=== PATIENT | female | born 1990 | race Caucasian/White ===

== ENCOUNTER → 2018-06-26 09:10 | Outpatient (REF) | payer MEDICAID, SELFPAY ==
[2018-06-26 12:46] LABS: Iron 113 ug/dL (50-175); Total Iron Binding Capacity 336 ug/dL (250-450); Transferrin Sat 34 % (15-50)
[2018-06-26 12:49] LABS: Abs Immature Grans 0.01 k/cumm (0.0-0.09); Absolute Basophil Count 0.03 k/cumm (0.0-0.2); Absolute Lymphocyte Count 2.68 k/cumm (1.2-3.4); Absolute Monocyte Count 0.57 k/cumm (0.11-0.7); Absolute Neutrophil Count 3.75 k/cumm (1.2-6.7); Basophils % 0.4; Eosinophils % 1.4; HCT 42.6 % (36.0-46.0); HGB 14.5 g/dL (12.0-15.5); Immature Grans % 0.1; Lymphocytes % 37.5; Mean Corpuscular Hemoglobin 29.4 pg (27.0-33.0); Mean Corpuscular Volume 86.4 fL (80-95); Mean Platelet Volume 10.6 fL (8.0-11.0); Neutrophils % 52.6; Platelet Count 327 x1000/uL (130-400); RBC 4.93 m/cumm (4.00-5.20); RBC Distribution Width 12.2 % (11.7-14.6); White Blood Cell Count 7.14 k/cumm (4.4-10.8)
[2018-06-26 13:05] LABS: Anion Gap 7.6 mmol/L (3-11); BUN 18 mg/dL (7-18); CO2 24.4 mmol/L (21.0-32.0); CREATININE 0.85 mg/dL (0.55-1.02); Calcium 8.9 mg/dL (8.5-10.1); Chloride 107 mmol/L (98-107); Ferritin 70 ng/mL (8-388); Glucose 88 mg/dL (70-100); Potassium 4.2 mmol/L (3.5-5.1); Sodium 139 mmol/L (136-145); TSH (W/Ref FT4) 1.79 uIU/mL (0.358-3.74); Vitamin B12 631 pg/mL (193-986)
== END ==
LOC: NCHCN 09:10
PROVIDERS: PCP Nurse Practitioner Family; Visit Provider Nurse Practitioner Family
DX: R53.83 Other fatigue (principal); R51 Headache; M25.50 Pain in unspecified joint; F41.9 Anxiety disorder, unspecified; Z30.9 Encounter for contraceptive management, unspecified; A60.00 Herpesviral infection of urogenital system, unspecified
CPT/HCPCS: 80048; 82607; 82728; 83540; 83550; 84443; 85025

== ENCOUNTER 2018-10-25 09:57 | Outpatient (REF) | payer MEDICAID, SELFPAY ==
--- NOTE | 2018-10-25 09:50 | PAPFT_PTH ---
PATIENT: Daily Osei LOC: NCN #:[id number] AGE/SX: 28/F ROOM: RE10/25/[address]: Pilar Stephens : 1990 BED: DIS: 10/25/2018 SPEC #: [id number] RECD: 10/25/18 13:01 STATUS: FABRIZIO RERoberto #: [id number] KEYON: 10/25/18 09:[address]: Pilar Stephens [facility] Cytology RECD BY: Qiana Davis Tissues: 1 - CX/ENDOCX FOR PAP SMEARS Procedures: PAP THIN PREP/UVM Screening Comments: [id number] (CHLAMYDIA/GC)
[2018-10-26 09:51] LABS: HIV-1/2 Ag & Ab Screen Negative (NEGAT)
[2018-10-26 11:28] LABS: Syphilis Serology (RPR) Negative (Negative)
[2018-10-26 13:30] LABS: Chlamydia Result Negative; GC Result Negative; Specimen Description SEE COMMENTS
== END 2018-10-25 10:17 ==
LOC: NCHCN 09:57
PROVIDERS: PCP Nurse Practitioner Family; Visit Provider Nurse Practitioner Family
DX: Z11.4 Encounter for screening for human immunodeficiency virus [HIV] (principal); Z11.59 Encounter for screening for other viral diseases; Z11.3 Encounter for screening for infections with a predominantly sexual mode of transmission; R53.83 Other fatigue; F41.9 Anxiety disorder, unspecified; Z12.4 Encounter for screening for malignant neoplasm of cervix
CPT/HCPCS: 87389; 87491; 87591; 88142; 86592

== ENCOUNTER 2019-02-14 13:21 | Outpatient (REF) | payer MEDICAID, SELFPAY | END 2019-02-14 13:41 | LOC: NCHCN 13:21 | PROVIDERS: PCP Nurse Practitioner Family; Visit Provider Nurse Practitioner Family | DX: N39.0 Urinary tract infection, site not specified (principal) | CPT/HCPCS: 87077; 87086; 87186 ==

== ENCOUNTER 2019-05-21 12:01 | Outpatient (REF) | payer MEDICAID, SELFPAY ==
[2019-05-21 21:41] LABS: Abs Immature Grans 0.01 k/cumm (0.0-0.09); Absolute Basophil Count 0.02 k/cumm (0.0-0.2); Absolute Eosinophil Count 0.12 k/cumm (0.0-0.7); Absolute Lymphocyte Count 2.31 k/cumm (1.2-3.4); Absolute Monocyte Count 0.65 k/cumm (0.11-0.7); Absolute Neutrophil Count 2.87 k/cumm (1.2-6.7); Basophils % 0.3; HCT 41.3 % (36.0-46.0); Immature Grans % 0.2; Lymphocytes % 38.6; Mean Corp. HGB Concentration 33.9 g/dL (32.0-36.0); Mean Corpuscular Hemoglobin 29.8 pg (27.0-33.0); Mean Corpuscular Volume 87.9 fL (80-95); Mean Platelet Volume 11.4 fL (8.0-11.0); Monocytes % 10.9; Platelet Count 284 x1000/uL (130-400); RBC Distribution Width 12.3 % (11.7-14.6); White Blood Cell Count 5.98 k/cumm (4.4-10.8)
[2019-05-21 21:56] LABS: ALT 33 U/L (12-78); AST 14 U/L (15-37); Albumin 3.7 g/dL (3.4-5.0); Alkaline Phosphatase 74 U/L (46-116); Anion Gap 10.1 mmol/L (3-11); BUN 10 mg/dL (7-18); Bilirubin, Total 0.2 mg/dL (0.2-1.0); CO2 25.9 mmol/L (21.0-32.0); CREATININE 0.74 mg/dL (0.55-1.02); Calcium 8.9 mg/dL (8.5-10.1); Chloride 106 mmol/L (98-107); Glucose 74 mg/dL (70-100); Potassium 4.5 mmol/L (3.5-5.1); Sodium 142 mmol/L (136-145); Total Protein 6.8 g/dL (6.4-8.2)
== END 2019-05-21 12:21 ==
LOC: NCHCN 12:01
PROVIDERS: PCP Nurse Practitioner Family; Visit Provider Nurse Practitioner Family
DX: R30.0 Dysuria (principal)
CPT/HCPCS: 80053; 85025; 87086

== ENCOUNTER 2019-05-23 08:12 | Outpatient (CLI) | payer MEDICAID, SELFPAY ==
--- NOTE | 2019-05-23 08:35 | DI.CT_ITS ---
SYMPTOM/DIAGNOSIS: DYSURIA R30.[address]: There are no prior comparison exams. Images were performed from the lung bases through the ischial tuberosities without IV or oral contrast. The heart size is normal. There are bilateral breast implants. The lung bases are clear. There are no renal calculi or evidence of hydronephrosis. The urinary bladder is mildly distended and unremarkable. The uterus and ovaries also have a normal appearance. The liver, gallbladder, spleen, pancreas and adrenals are unremarkable without IV contrast. There is a moderate quantity of stool. No bowel dilatation or wall thickening is seen IMPRESSION: Negative renal colic CT. No evidence of urinary tract calculi or other acute abnormality.
== END 2019-05-23 08:32 ==
PROVIDERS: PCP Nurse Practitioner Family; Visit Provider Nurse Practitioner Family
DX: R30.0 Dysuria (principal)
CPT/HCPCS: 74176

== ENCOUNTER 2020-01-28 04:37 | Outpatient (CLI) | payer MEDICAID, SELFPAY ==
[2020-01-28 08:28] LABS: Abs Immature Grans 0.01 k/cumm (0.0-0.09); Absolute Basophil Count 0.04 k/cumm (0.0-0.2); Absolute Eosinophil Count 0.09 k/cumm (0.0-0.7); Absolute Monocyte Count 0.62 k/cumm (0.11-0.7); Absolute Neutrophil Count 4.53 k/cumm (1.2-6.7); Basophils % 0.5; Eosinophils % 1.2; HCT 42.1 % (36.0-46.0); HGB 14.3 g/dL (12.0-15.5); Immature Grans % 0.1 %; Lymphocytes % 28.4; Mean Corpuscular Hemoglobin 29.5 pg (27.0-33.0); Mean Platelet Volume 10.1 fL (8.0-11.0); Monocytes % 8.4; Neutrophils % 61.4; Platelet Count 351 x1000/uL (130-400); RBC 4.84 m/cumm (4.00-5.20); RBC Distribution Width 12.2 % (11.7-14.6); White Blood Cell Count 7.39 k/cumm (4.4-10.8)
[2020-01-28 09:08] LABS: ALT 28 U/L (14-59); AST 18 U/L (15-37); Alkaline Phosphatase 77 U/L (46-116); Anion Gap 8.3 mmol/L (3-11); BUN 6 mg/dL (7-18); Bilirubin, Total 0.3 mg/dL (0.2-1.0); CO2 28.7 mmol/L (21.0-32.0); CREATININE 0.84 mg/dL (0.55-1.02); Chloride 106 mmol/L (98-107); Glucose 91 mg/dL (74-106); Potassium 3.7 mmol/L (3.5-5.1); Sodium 143 mmol/L (136-145); Total Protein 6.9 g/dL (6.4-8.2)
== END 2020-01-28 04:57 ==
PROVIDERS: PCP Nurse Practitioner Family; Visit Provider Nurse Practitioner Family
DX: R19.7 Diarrhea, unspecified (principal)
CPT/HCPCS: 36415; 80053; 85025

== ENCOUNTER 2020-01-28 17:46 | Outpatient (REF) | payer MEDICAID, SELFPAY ==
[2020-01-30 10:18] LABS: Campylobacter PCR Negative (Negative); Salmonella PCR Negative (Negative); Shiga Toxin PCR Negative (Negative); Shigella/Enteroinvasive Ecoli Negative (Negative)
== END 2020-01-28 18:06 ==
LOC: LBN 17:46
PROVIDERS: PCP Nurse Practitioner Family; Visit Provider Nurse Practitioner Family
DX: R19.7 Diarrhea, unspecified (principal)
CPT/HCPCS: 87505; 87177

== ENCOUNTER 2020-02-17 12:50 | Outpatient (REF) | payer MEDICAID, SELFPAY | END 2020-02-17 13:10 | LOC: NCHCN 12:50 | PROVIDERS: PCP Nurse Practitioner Family; Visit Provider Nurse Practitioner Family | DX: N39.0 Urinary tract infection, site not specified (principal); R39.15 Urgency of urination | CPT/HCPCS: 87077; 87086; 87186 ==

== ENCOUNTER 2020-04-30 21:07 | Outpatient (REF) | payer MEDICAID, SELFPAY | END 2020-04-30 21:27 | LOC: NCHCN 21:07 | PROVIDERS: PCP Nurse Practitioner Family; Visit Provider Nurse Practitioner Family | DX: R30.0 Dysuria (principal) | CPT/HCPCS: 87077; 87086; 87186 ==

== ENCOUNTER 2020-05-14 11:31 | Outpatient (REF) | payer MEDICAID, SELFPAY | END 2020-05-14 11:51 | LOC: NCHCN 11:31 | PROVIDERS: PCP Nurse Practitioner Family; Visit Provider Nurse Practitioner Family | DX: R30.0 Dysuria (principal) | CPT/HCPCS: 87077; 87086; 87186 ==

== ENCOUNTER 2020-05-29 12:14 | Outpatient (REF) | payer MEDICAID, SELFPAY | END 2020-05-29 12:34 | LOC: NCHCN 12:14 | PROVIDERS: PCP Nurse Practitioner Family; Visit Provider Internal Medicine | DX: N39.0 Urinary tract infection, site not specified (principal); R30.0 Dysuria | CPT/HCPCS: 87077; 87086; 87186 ==

== ENCOUNTER 2020-06-03 14:41 | Outpatient (REF) | payer MEDICAID, SELFPAY | END 2020-06-03 15:01 | LOC: NCHCN 14:41 | PROVIDERS: PCP Nurse Practitioner Family; Visit Provider Family Medicine | DX: N39.0 Urinary tract infection, site not specified (principal); R30.0 Dysuria | CPT/HCPCS: 87086 ==

== ENCOUNTER 2020-06-24 13:10 | Outpatient (REF) | payer MEDICAID, SELFPAY ==
[2020-06-27 19:41] LABS: SARS-CoV-2 RNA Undetected (Undetected); SARS-CoV-2 Specimen Source Nasopharynx
== END 2020-06-24 13:30 ==
LOC: NCHCN 13:10
PROVIDERS: PCP Nurse Practitioner Family; Visit Provider Nurse Practitioner Family
DX: Z20.828 Contact with and (suspected) exposure to other viral communicable diseases (principal)
CPT/HCPCS: U0003

== ENCOUNTER 2020-07-02 15:58 | Outpatient (REF) | payer MEDICAID, SELFPAY | END 2020-07-02 16:18 | LOC: LBN 15:58 | PROVIDERS: PCP Nurse Practitioner Family; Visit Provider Nurse Practitioner Gerontology | DX: N39.0 Urinary tract infection, site not specified (principal) | CPT/HCPCS: 87077; 87086; 87186 ==

== ENCOUNTER 2020-07-29 13:48 | Outpatient (REF) | payer MEDICAID, SELFPAY ==
[2020-08-01 02:00] LABS: Patient Race White; SARS-CoV-2 RNA Undetected (Undetected); SARS-CoV-2 Specimen Source Nasal
== END 2020-07-29 14:08 ==
LOC: NCHCN 13:48
PROVIDERS: PCP Nurse Practitioner Family; Visit Provider Nurse Practitioner Family
DX: Z20.828 Contact with and (suspected) exposure to other viral communicable diseases (principal)
CPT/HCPCS: U0003

== ENCOUNTER 2020-08-11 13:09 | Outpatient (REF) | payer MEDICAID, SELFPAY ==
[2020-08-14 18:48] LABS: Patient Race White; SARS-CoV-2 RNA Undetected (Undetected); SARS-CoV-2 Specimen Source Nasal
== END 2020-08-11 13:29 ==
LOC: NCHCN 13:09
PROVIDERS: PCP Nurse Practitioner Family; Visit Provider Nurse Practitioner Family
DX: Z20.828 Contact with and (suspected) exposure to other viral communicable diseases (principal)
CPT/HCPCS: U0003

== ENCOUNTER 2020-08-18 09:51 | Emergency (ER) | payer MEDICAID, SELFPAY ==
[2020-08-18 09:58] VITALS: BP 118/79; PULSE 98; RESP 18; TEMP 36.8; O2SAT 96
--- NOTE | 2020-08-18 10:08 | W.ED.GENAD ---
Discharge Plan Disposition Patient Disposition: HOME Condition: Stable Discharge Details Clinical Impression: UTI (urinary tract infection) Primary Care Provider: Pilar Stephens ED Provider: Aram Hansen Home Meds and New Rx's Prescriptions: New nitrofurantoin monohyd/m-cryst [Macrobid] 100 mg capsule 100 mg PO BID Qty: 14 RF: 0 Continued oxybutynin chloride 5 mg tablet extended release 24hr 5 mg PO DAILY Qty: 90 RF: 3 valacyclovir 500 MG tablet 500 mg PO BID PRN RF: 0 multivitamin [Daily Multi-Vitamin] 1 EACH tablet 1 ea PO DAILY RF: 0 venlafaxine [Effexor XR] 75 mg capsule,extended release 24hr 150 mg PO DAILY RF: 0 Discharge Instructions Instructions: Urinary Tract Infection in Women (ED) Additional Instructions: Macrobid as directed. Plenty of fluids to avoid dehydration. [id number] Tylenol, Motrin, Azo as directed for symptomatic control. Please watch for new or worsening symptoms and return to the ER for any concerns. I will be sure to CC this note to DEMI Leblanc, please contact her office later today or tomorrow for prompt outpatient reevaluation. Referrals: Christiane Leblanc, TAJ [NURSE PRACTITIONER] - Medical Decision Making 29-year-old female with recurrent UTIs presents with 5-day symptoms of lower abdominal and back pain, dysuria, frequency and now today a low-grade fever at home 100.4. She called her urology team and sent here for further evaluation. Clinically she appears well, nontoxic. She is afebrile, pulse in the 90s, blood pressure 118/79. She does have discomfort across her back and lower abdomen but certainly there is no rebound, guarding or rigidity. Clinically certainly appears to be a urinary tract infection however would like to obtain urinalysis and test to rule out , ectopic . Lower suspicion for renal stone, pyelonephritis, etc. Urinalysis reveals moderate blood, large leuk esterase, 10-20 red cells, greater than 50 white cells. Culture pending. I consulted DEMI Leblanc, we discussed previous culture and 70s. We will give a single dose of Macrobid now and will obtain CBC, CMP, renal ultrasound for further evaluation. Patient given 1 L IV fluid, 30 IV Toradol. White blood cell count 11.54, chemistries unremarkable. Ultrasound negative. Work-up most consistent with UTI, no clear indication that this is pyelonephritis that would require admission. Minimal nonspecific leukocytosis. She is afebrile, without any vomiting. Discussed options with patient. She is comfortable discharge home, I will provide a prescription for Macrobid, she will take [id number] Tylenol and/or Motrin, Azo, and follow-up with urology later today or tomorrow. Medical Records Medical records reviewed: Yes I reviewed the patient's medical records. Imaging Data Radiologic Study: Attestation: I personally reviewed and interpreted this imaging study as follows: Imaging: Ultrasound Radiologist's impression: Renal ultrasound unremarkable Lab Data Lab results reviewed: Yes I reviewed the patient's lab results. Lab results narrative: 08/18/20 09:55 Urine - Reflex from Ua Urine Culture - Pending Laboratory Tests Range/Units 08/18/20 08/18/20 08/18/20 09:55 10:50 10:50 WBC (4.4-10.8) 10^3/uL 11.54 H RBC (3.93-5.22) 10^6/uL 4.82 Hgb (11.2-15.7) g/dL 14.3 Hct (36.0-46.0) % 42.1 MCV (80-95) fL 87.3 MCH (27.0-33.0) pg 29.7 MCHC (32.0-36.0) % 34.0 RDW (11.7-14.6) % 11.7 Plt Count (130-400) 10^3/uL 333 MPV (8.0-11.0) fL 10.1 Immature Gran % 0.2 Neutrophils % 74.6 Lymphocytes % 17.7 Monocytes % 6.7 Eosinophils % 0.6 Basophils % 0.2 Nucleated RBC % % 0 Absolute Neutrophils (1.2-6.7) 10^3/uL 8.61 H Absolute Lymphocytes (1.2-3.4) 10^3/uL 2.04 Absolute Monocytes (0.1-0.8) 10^3/uL 0.77 Absolute Eosinophils (0.0-0.7) 10^3/uL 0.07 Absolute Basophils (0.0-0.2) 10^3/uL 0.02 Sodium (136-145) mmol/L 138 Potassium (3.5-5.1) mmol/L 3.9 Chloride (98-107) mmol/L 101 Carbon Dioxide (21.0-32.0) mmol/L 30.4 Anion Gap (3-11) mmol/L 6.6 BUN (7-18) mg/dL 13 Creatinine (0.55-1.02) mg/dL 0.85 Estimated GFR/1.73 m2 (mL/min/1.73m2) >= 60.00 Glucose (74-106) mg/dL 99 Calcium (8.5-10.1) mg/dL 8.9 Total Bilirubin (0.2-1.0) mg/dL 0.4 AST (15-37) U/L 16 ALT (14-59) U/L 20 Alkaline Phosphatase (46-116) U/L 90 Total Protein (6.4-8.2) g/dL 7.6 Albumin (3.4-5.0) g/dL 3.9 Urine Color (Yellow) Yellow Urine Clarity (Clear) Cloudy Urine pH (5-8) 6.0 Ur Specific [place] (1.005-1.025) 1.020 Urine Protein (Negative) mg/dL >=300 H Urine Ketones (Negative) mg/dL Negative Urine Blood (Negative) Moderate H Urine Nitrite (Negative) Negative Urine Bilirubin (Negative) Negative Urine Urobilinogen (Up TO 0.2) EU/dL 0.2 Ur Leukocyte Esterase (Negative) Large H Urine RBC (0-2) HPF 10-20 H Urine WBC (0-5) HPF >50 H Ur Epithelial Cells (Negative) HPF Few Urine Crystals (Negative) HPF Negative Urine Bacteria (Negative) HPF Moderate Urine Casts (Negative) LPF Negative Urine Mucus (Negative) Moderate Urine Other (Negative) Negative Ur Culture Indicated? Yes Urine Glucose (Negative) mg/dL Negative HPI General Mode of arrival: ambulatory. Date/Time Provider Initiated Documentation: 08/18/20 09:51. Limitations to Documentation: no limitations. Information obtained by: patient. HPI Narrative: This is a 29-year-old female with history of anxiety, migraines, recurrent UTIs, stress incontinence, presenting to the ER reporting 5-day history of UTI-like symptoms. Urinary frequency, dysuria, lower abdominal pain and bilateral back pain. Mild left flank pain. Reports that today she had a fever at home 100.4. She denies taking any medications for her symptoms today. Denies any nausea, vomiting, hematuria, vaginal bleeding or discharge. She is on oxybutynin and contacted urology today who sent to the ER for further evaluation. She denies recent illness or trauma. Denies any pelvic pain Related Data Home Medications Medication Instructions Recorded Confirmed valacyclovir 500 mg PO BID PRN tab-cap 08/24/16 08/18/20 multivitamin [Daily Multi-Vitamin] 1 ea PO DAILY 09/01/16 08/18/20 venlafaxine 75 mg capsule,extended 150 mg PO DAILY tab-cap 06/10/20 08/18/20 release 24 hr oxybutynin chloride 5 mg 5 mg PO DAILY #90 tab 07/23/20 08/18/20 tablet,extended release 24 hr nitrofurantoin monohyd/m-cryst 100 mg PO BID #14 cap 08/18/20 [Macrobid] Previous Rx's Medication Instructions Recorded oxybutynin chloride 5 mg 5 mg PO DAILY #90 tab 07/23/20 tablet,extended release 24 hr nitrofurantoin monohyd/m-cryst 100 mg PO BID #14 cap 08/18/20 [Macrobid] Allergies Allergy/AdvReac Type Severity Reaction Status Date / Time No Known Allergies Allergy Unverified 08/18/20 10:02 General Stated Complaint: Urinary JACINTO: 3 Review of Systems Constitutional Constitutional: Reports fever(s) Cardiovascular Cardiovascular: Denies chest pain and Denies dyspnea Respiratory Respiratory: Denies cough and Denies dyspnea Gastrointestinal Gastrointestinal: Reports abdominal pain, Denies nausea and Denies vomiting Genitourinary Genitourinary: Denies abnormal vaginal bleeding, Reports dysuria, Reports urinary urgency and Denies vaginal discharge Musculoskeletal Musculoskeletal: Reports back pain Integumentary/Breasts Skin/Breast: Denies rash [facility] Medical History Genital herpes Recurrent UTI Right knee pain Stress incontinence Social History Smoking/Tobacco Use Status: Former Tobacco Use Alcohol Intake: current Alcohol Intake frequency: a few times a month Drug use: Never Do you feel safe at home: Yes Do you feel safe in your relationship?: Yes Exam Const General: cooperative, healthy appearing, comfortable and no acute distress Orientation: alert and awake [facility] [place] Head: normal to inspection, normocephalic and atraumatic Mouth: moist mucous membranes Eyes Conjunctivae: conjunctivae normal Neck Neck: normal visual inspection, full ROM, trachea midline and supple Resp Effort & Inspection: normal respiratory effort and able to speak in complete sentences Auscultation: clear to auscultation bilaterally Cardio Rate: regular rate Rhythm: regular rhythm GI Inspection: normal to inspection Palpation: soft, not firm, no guarding, not rigid and tender (Diffuse mild lower) Auscultation: normal bowel sounds Back/Spine/Pelvis Back: no CVA tenderness and back tenderness (Diffuse mild lower) Skin General skin exam: no rashes or lesions noted Neuro General: patient alert, patient awake, moves all extremities and no focal motor deficits Cognition: normal cognition Speech: speech normal Gait: normal gait Sensory Exam: no sensory deficits noted Psych Appearance: grossly normal Mental Status: mental status grossly normal Course Vital Signs Vital signs: Vital Signs Temperature 36.8 C 08/18/20 09:58 Pulse 98 H 08/18/20 09:58 Respiratory Rate 18 08/18/20 09:58 Blood Pressure 118/79 08/18/20 09:58 Pulse Oximetry 96 08/18/20 09:58 Temperature 36.8 C 08/18/20 09:58 Temperature Source Skin 08/18/20 09:58 Pulse 98 H 08/18/20 09:58 Respiratory Rate 18 08/18/20 09:58 Respiratory Effort Non-Labored 08/18/20 10:01 Blood Pressure 118/79 08/18/20 09:58 Blood Pressure Position Sitting 08/18/20 09:58 Pulse Oximetry 96 08/18/20 09:58 Oxygen Delivery Method Room Air 08/18/20 09:58 Oxygen Flow Rate 0 08/18/20 09:58 Pain Level 7 08/18/20 09:58 Comment 08/18/20 09:58 Lab/Test Results Lab/Test Results: POC- Test(urine) Negative
[2020-08-18 10:15] LABS: Bilirubin Negative (Negative); Blood Moderate (Negative); Clarity Cloudy (Clear); Glucose Negative (Negative); Ketones Negative (Negative); Leukocyte Esterase Large (Negative); Nitrite Negative (Negative); Urobilinogen 0.2 EU/dL (Up TO 0.2)
[2020-08-18 10:28] LABS: Bacteria Moderate HPF (Negative); C & S Indicated? Yes; Casts Negative LPF (Negative); Crystals Negative HPF (Negative); Epithelial Cells Few HPF (Negative); Mucus Moderate (Negative); Other Cells Negative (Negative); WBC >50 HPF (0-5)
--- NOTE | 2020-08-18 10:30 | DI.US_ITS ---
EXAM: US RENAL CLINICAL HISTORY: UTI, L flank pain. TECHNIQUE: Gudino scale, color and spectral Doppler were used. COMPARISON: No exams were available for comparison FINDINGS: Renal size in cm: Right: 9.6 left: 10.2 Echogenicity: Normal Hydronephrosis: No Cyst or mass: No Nephrolithiasis: No Other findings: No perinephric collection Bladder:Normal Prevoid vol:339 cc Postvoid vol:5 cc Uterus grossly normal. DOPPLER FINDINGS: Symmetric blood flow. IMPRESSION: Negative renal ultrasound. DATA REPOSITORY:
[2020-08-18] MEDS: Ketorolac 30 MG/ML VIAL IVP (10:59)
[2020-08-18] MEDS: Normal Saline 1,000 ML 1000 ML IV (10:59)
[2020-08-18 11:04] LABS: Abs Immature Grans 0.02 10^3/uL (0.0-0.06); Absolute Basophil Count 0.02 10^3/uL (0.0-0.2); Absolute Eosinophil Count 0.07 10^3/uL (0.0-0.7); Absolute Lymphocyte Count 2.04 10^3/uL (1.2-3.4); Absolute Monocyte Count 0.77 10^3/uL (0.1-0.8); Basophils % 0.2; Eosinophils % 0.6; HCT 42.1 % (36.0-46.0); HGB 14.3 g/dL (11.2-15.7); Immature Grans % 0.2; Lymphocytes % 17.7; MCH 29.7 pg (27.0-33.0); MCV 87.3 fL (80-95); MPV 10.1 fL (8.0-11.0); Monocytes % 6.7; Neutrophils % 74.6; Nucleated RBC 0 %; Platelet Count 333 10^3/uL (130-400); RBC 4.82 10^6/uL (3.93-5.22); RDW 11.7 % (11.7-14.6); RDW-SD 37.5 fL; WBC 11.54 10^3/uL (4.4-10.8)
[2020-08-18 11:08] LABS: Absolute Neutrophil Count 8.61 10^3/uL (1.2-6.7)
[2020-08-18 11:16] LABS: ALT 20 U/L (14-59); AST 16 U/L (15-37); Albumin 3.9 g/dL (3.4-5.0); Alkaline Phosphatase 90 U/L (46-116); Anion Gap 6.6 mmol/L (3-11); BUN 13 mg/dL (7-18); Bilirubin, Total 0.4 mg/dL (0.2-1.0); CO2 30.4 mmol/L (21.0-32.0); CREATININE 0.85 mg/dL (0.55-1.02); Calcium 8.9 mg/dL (8.5-10.1); Chloride 101 mmol/L (98-107); Glucose 99 mg/dL (74-106); Potassium 3.9 mmol/L (3.5-5.1); Sodium 138 mmol/L (136-145); Total Protein 7.6 g/dL (6.4-8.2)
== END 2020-08-18 12:06 | disposition home or self-care (01) ==
PROVIDERS: Emergency Provider Physician Assistant; PCP Nurse Practitioner Family
DX: N39.0 Urinary tract infection, site not specified (principal); B96.20 Unspecified Escherichia coli [E. coli] as the cause of diseases classified elsewhere; Z87.440 Personal history of urinary (tract) infections
CPT/HCPCS: 36415; 76770; 80053; 81025; 87077; 96361; 96374; 99284; 81003; 81015; 85025; 87086; 87186; J1885

== ENCOUNTER 2020-09-01 15:09 | Outpatient (REF) | payer MEDICAID, SELFPAY ==
[2020-09-01 17:30] LABS: Bilirubin Negative (Negative); Blood Small (Negative); Clarity Sl Cloudy (Clear); Glucose Negative (Negative); Ketones Negative (Negative); Leukocyte Esterase Small (Negative); Nitrite Positive (Negative); Specific Gravity 1.025 (1.005-1.025); Urobilinogen 0.2 EU/dL (Up TO 0.2)
[2020-09-01 17:40] LABS: Bacteria Many HPF (Negative); Epithelial Cells Few HPF (Negative); WBC >50 HPF (0-5)
[2020-09-01 17:41] LABS: C & S Indicated? C&S Done As Ordered; Crystals Negative HPF (Negative); Mucus Negative (Negative)
[2020-09-06 15:30] LABS: Patient Race White; SARS-CoV-2 RNA Undetected (Undetected); SARS-CoV-2 Specimen Source Nasal
== END 2020-09-01 15:29 ==
LOC: LBN 15:09
PROVIDERS: PCP Nurse Practitioner Family; Visit Provider Nurse Practitioner Gerontology
DX: Z20.9 Contact with and (suspected) exposure to unspecified communicable disease (principal); N39.0 Urinary tract infection, site not specified
CPT/HCPCS: 87077; U0003; 81003; 81015; 87086; 87186

== ENCOUNTER 2020-12-03 10:30 | Outpatient (REF) | payer MEDICAID, SELFPAY ==
--- NOTE | 2020-12-03 09:30 | PAPFT_PTH ---
PATIENT: Daily Osei LOC: NCN #:[id number] AGE/SX: 30/F ROOM: RE12/03/[address]: Pilar Stephens : 1990 BED: DIS: 12/03/2020 SPEC #: [id number] RECD: 12/03/20 13:02 STATUS: FABRIZIO RASHID #: [id number] KEYON: 12/03/20 09:[address]: Pilar Stephens DEPT: [facility] Cytology RECD BY: iQana Davis Tissues: 1 - CX/ENDOCX FOR PAP SMEARS Procedures: PAP THIN PREP/UVM Screening HPV DNA PROBE Comments: [id number]
== END 2020-12-03 10:31 | disposition home or self-care (01) ==
LOC: NCHCN 10:30
PROVIDERS: PCP Nurse Practitioner Family; Visit Provider Nurse Practitioner Family
DX: Z12.4 Encounter for screening for malignant neoplasm of cervix (principal); Z00.00 Encounter for general adult medical examination without abnormal findings; Z11.51 Encounter for screening for human papillomavirus (HPV)
CPT/HCPCS: 88142; 87624

== ENCOUNTER 2021-05-25 03:38 | Outpatient (CLI) | payer MEDICAID, SELFPAY ==
[2021-05-25 12:58] LABS: TSH (W/Ref FT4) 2.69 uIU/mL (0.36-3.74)
[2021-05-25 17:18] LABS: FSH 8.9 mIU/mL (See Note)
== END 2021-05-25 03:39 | disposition home or self-care (01) ==
LOC: LBO 03:38
PROVIDERS: PCP Nurse Practitioner Family; Visit Provider Obstetrics & Gynecology
DX: Z31.69 Encounter for other general counseling and advice on procreation (principal)
CPT/HCPCS: 36415; 83001; 84443

== ENCOUNTER 2021-06-28 01:45 | Outpatient (CLI) | payer MEDICAID, SELFPAY ==
--- NOTE | 2021-06-28 08:00 | DI.US_ITS ---
Exam(s) US PELVIS TRANSVAGINAL EXAM: US PELVIS TRANSVAGINAL CLINICAL HISTORY: prior ovarian cyst,subfertility,z31.69. TECHNIQUE: Transabdominal and transvaginal pelvic ultrasound was performed using standard protocol. FINDINGS: UTERUS: Position: Anteverted. Size: 6.9 long by 3.6 AP by 4.6 transverse cm Endometrium: 0.5 cm. Normal for patient's menstrual status. Myometrium: Unremarkable. Cervix: Unremarkable. OVARIES: Right: 3.3 x 2.9 x 1.4 cm Cyst or mass: Small follicular cysts are present. Left: 2.8 x 2.3 x 2.1 cm Cyst or mass: Small follicular cysts are present. DOPPLER: Color: Symmetric and uniform flow to both ovaries. No hyperemia. Duplex: Normal ovarian arterial waveforms visualized. CUL-DE-SAC: Free fluid: Trace amount of free fluid adjacent to the left ovary. Other: None. IMPRESSION: 1. Normal-appearing uterus with endometrial stripe within normal limits. 2. Unremarkable bilateral ovaries. DATA REPOSITORY:
== END 2021-06-28 02:05 ==
PROVIDERS: PCP Nurse Practitioner Family; Visit Provider Obstetrics & Gynecology
DX: Z31.69 Encounter for other general counseling and advice on procreation (principal); N83.01 Follicular cyst of right ovary
CPT/HCPCS: 76830; 76856

== ENCOUNTER 2023-09-04 14:52 | Outpatient (REF) | payer MEDICAID, SELFPAY | END 2023-09-04 14:53 | disposition home or self-care (01) | LOC: NCHCN 14:52 | PROVIDERS: PCP Nurse Practitioner Family; Visit Provider Nurse Practitioner Family | DX: R35.0 Frequency of micturition (principal); N39.0 Urinary tract infection, site not specified | CPT/HCPCS: 87086 ==

== ENCOUNTER 2024-11-25 18:20 | Outpatient (REF) | payer BC, SELFPAY ==
[2024-11-25 16:00] LABS: Iron 50 ug/dL (50-170); Total Iron Binding Capacity 352 ug/dL (250-450); Transferrin Sat 14 % (15-50)
[2024-11-25 16:18] LABS: ALT 33 U/L (14-59); AST 19 U/L (15-37); Albumin 3.9 g/dL (3.4-5.0); Alkaline Phosphatase 78 U/L (46-116); Anion Gap 8.4 mmol/L (3-11); BUN 12 mg/dL (7-18); Bilirubin, Total 0.21 mg/dL (0.2-1.0); CO2 28.6 mmol/L (21.0-32.0); CREATININE 0.7 mg/dL (0.55-1.02); Calcium 9.4 mg/dL (8.5-10.1); Chloride 106 mmol/L (98-107); Estimated GFR 115.59 (mL/min/1.73m2); Glucose 93 mg/dL (74-106); Potassium 4.5 mmol/L (3.5-5.1); Sodium 143 mmol/L (136-145)
[2024-11-26 00:32] LABS: Ferritin 19 ng/mL (8-252)
[2024-11-26 09:53] LABS: Transferrin 263 mg/dL (201-352)
== END 2024-11-25 18:21 | disposition home or self-care (01) ==
LOC: NCHCN 18:20
PROVIDERS: PCP Nurse Practitioner Family; Visit Provider Nurse Practitioner Family
DX: Z83.49 Family history of other endocrine, nutritional and metabolic diseases (principal); Z13.29 Encounter for screening for other suspected endocrine disorder
CPT/HCPCS: 80053; 82728; 83540; 83550; 84466